=== PATIENT | female | born 1935 | race Caucasian/White ===

== ENCOUNTER 2023-10-09 18:27 | Inpatient (IN) | payer OTHER ==
[2023-10-13 20:56] VITALS: BP 127/82
[2023-10-14 09:18] VITALS: TEMP 98
== END 2023-10-14 10:52 | disposition hospice, inpatient (51) | DRG 951 ==
LOC: IMCU/EMU 18:27 → MSONC 21:04
PROVIDERS: ADMIT Internal Medicine; ATTEND Internal Medicine
PROC: 5A0935A Assistance with Respiratory Ventilation, Less than 24 Consecutive Hours, High Flow/Velocity Cannula (ICD-10-PCS; principal; 2023-10-09)
DX: Z51.5 Encounter for palliative care (principal); I21.4 Non-ST elevation (NSTEMI) myocardial infarction; R53.1 Weakness; R62.7 Adult failure to thrive; M62.82 Rhabdomyolysis; R64 Cachexia; Z79.899 Other long term (current) drug therapy; Z98.890 Other specified postprocedural states